=== PATIENT | female | born 1985 | race Caucasian/White ===

== ENCOUNTER 2018-05-03 05:21 | Day surgery (SDC) | payer MEDICAID ==
[2018-05-03] MEDS ORDERED: BUPIVACAINE 0.5%/EPI (SDV) 30 ML INJ (07:08)
[2018-05-03] MEDS ORDERED: LABETALOL HCL 20MG INJ IV (07:30)
[2018-05-03] MEDS ORDERED: DIPHENHYDRAMINE 50 MG INJ IV (07:30)
[2018-05-03] MEDS ORDERED: HYDROmorphONE 1 MG/5 ML IV SYRINGE IV ×2 (07:30)
[2018-05-03] MEDS ORDERED: OXYCODONE/ACETAMINOPHEN (5/325) TAB PO (07:30)
[2018-05-03] MEDS ORDERED: hydrALAzine 20 MG INJ IV (07:30)
[2018-05-03] MEDS ORDERED: KETOROLAC 30 MG INJ (07:33)
[2018-05-03] MEDS ORDERED: ONDANSETRON 4 MG INJ (07:33)
[2018-05-03] MEDS ORDERED: NEOSTIGMINE 3 MG/3 ML SYRINGE (07:33)
[2018-05-03] MEDS ORDERED: MIDAZOLAM 1 MG/ML 2 ML INJ (07:33)
[2018-05-03] MEDS ORDERED: ROPIVACAINE 0.5 % 30 ML VIAL (07:33)
[2018-05-03] MEDS ORDERED: GLYCOPYRROLATE 0.4 MG INJ (07:33)
[2018-05-03] MEDS ORDERED: PROPOFOL 20 ML (07:33)
[2018-05-03] MEDS ORDERED: METOCLOPRAMIDE 10 MG INJ (07:33)
[2018-05-03] MEDS ORDERED: ROCURONIUM 50 MG INJ (07:33)
[2018-05-03] MEDS ORDERED: CEFAZOLIN 1 GM INJ (08:33)
[2018-05-03] MEDS: HYDROmorphONE 1 MG/5 ML IV SYRINGE IV (08:51)
[2018-05-03] MEDS: KETOROLAC 30 MG INJ IV (08:53)
[2018-05-03] MEDS: ONDANSETRON 4 MG INJ IV (08:56)
[2018-05-03] MEDS: MEPERIDINE 25 MG INJ IV (09:01)
[2018-05-03] MEDS: OXYCODONE/ACETAMINOPHEN (5/325) TAB PO (09:17)
== END 2018-05-03 11:15 | disposition home or self-care (01) ==
LOC: SDS 05:21
DX: Z30.2 Encounter for sterilization (principal)
CPT/HCPCS: 58661; 88302